=== PATIENT | female | born 1960 | race Caucasian/White ===

== ENCOUNTER → 2016-05-31 | Outpatient (CLI) | payer OTHER ==
--- NOTE | 2016-05-31 10:19 | RAD ---
Single frontal view pelvis. Indication: PAIN IN RIGHT HIP Comparison: None Impression: Pelvic ring intact. No acute fracture of the pelvis or hips. Minimal pubic symphysis osteoarthritis. Osteopenia. If this is a new finding, DEXA scan recommended as well as evaluation for possible osteoporosis treatment. Electronically signed by: Jone Colindres MD 05/31/2016 10:16
--- NOTE | 2016-05-31 10:19 | RAD ---
Three view right knee. Indication: PAIN IN RIGHT KNEE Comparison: None Impression: Mild medial compartment joint space narrowing without subchondral sclerosis or cystic change. No acute fracture malalignment. Tiny suprapatellar knee effusion. MRI can better evaluate for internal derangements clinically indicated. Electronically signed by: Jone Colindres MD 05/31/2016 10:17
== END ==
LOC: RAD 09:47
PROVIDERS: ATTEND Orthopaedic Surgery
DX: M25.561 Pain in right knee (principal); M25.461 Effusion, right knee; M25.551 Pain in right hip; M25.861 Other specified joint disorders, right knee; M19.90 Unspecified osteoarthritis, unspecified site; M85.88 Other specified disorders of bone density and structure, other site